=== PATIENT | male | born 1940 | race Caucasian/White ===

== ENCOUNTER 2017-03-31 14:00 | Outpatient (CLI) | payer MEDICARE, BC | END 2017-03-31 14:01 | disposition home or self-care (01) | LOC: BICRAD 14:00 | PROVIDERS: ATTEND Internal Medicine | DX: R05 Cough (principal); R50.9 Fever, unspecified | CPT/HCPCS: 71046 ==

== ENCOUNTER 2017-11-18 08:07 | Outpatient (CLI) | payer MEDICARE, BC ==
--- NOTE | 2017-11-18 09:45 | MRI ---
MRI BRAIN WITHOUT CONTRAST: HISTORY: New-onset headaches after age 48. FINDINGS: No restricted diffusion is seen. No evidence of infarct, hemorrhage, midline shift, or abnormal extr aaxial fluid collections were seen. There are multiple foci of T2 prolongation in the periventricula r white matter consistent with chronic small-vessel ischemic disease. The ventricular size is approp riate and the basilar cisterns are patent. A small focus of hemosiderin deposition is seen in the le ft posterior parietal lobe on the gradient echo sequences indicative of a remote insult. There is mu cosal disease in the paranasal sinuses. There is cortical atrophy. IMPRESSION: 1. Cortical atrophy. 2. Chronic small-vessel ischemic disease. 3. Paranasal sinus disease. 4. No evidence of acute intracranial process. POS: [facility]
== END 2017-11-18 08:08 | disposition home or self-care (01) ==
LOC: TBSIIMAG 08:07
PROVIDERS: ATTEND Psychiatry & Neurology Neurology
DX: R51 Headache (principal); I67.9 Cerebrovascular disease, unspecified; G31.9 Degenerative disease of nervous system, unspecified; J32.9 Chronic sinusitis, unspecified
CPT/HCPCS: 70551

== ENCOUNTER 2018-10-16 08:56 | Outpatient (CLI) | payer MEDICARE, BC ==
--- NOTE | 2018-10-16 12:24 | CT ---
CT CHEST AND ABDOMEN AND PELVIS WITH IV CONTRAST: Date: 10/16/18 INDICATION: History of unintentional weight loss of 10 lbs., with loss of appetite. COMPARISON: None. FINDINGS: There is a 4 mm pulmonary nodule within the right upper lobe on image 22 of series 3. There is an add itional 6 mm pulmonary nodule within the posterolateral aspect of the right lower lobe on image 34 on series 3. There is a 5 mm pulmonary nodule within the left upper lobe on image 26 of series 3. There is a calcified granuloma within the posterolateral aspect of the left lower lobe. There are mild sca ttered areas of subsegmental volume loss. There are mild to moderate calcifications involving the coronary arteries and thoracic aorta. There a re calcified lymph nodes within the right hilar region. There is an 8 mm pulmonary nodule within the right tracheobronchial region. There is a 7 mm pulmonary nodule within the anterior precarinal region . No pathologically enlarged lymph nodes are evident. There is mild fatty infiltration of the liver. The gallbladder is surgically absent. The pancreas and adrenal glands are normal appearing. The spleen is normal appearing. There is a hypodense lesion inv olving the mid right kidney on image 64 of series 2 measuring 1.8 cm that cannot be further character ized. No hydronephrosis is evident. No free fluid or enlarged lymph nodes are evident. The small and large bowel are of normal caliber. There is a normal appendix in the right lower quadra nt. Prostate is mildly enlarged measuring 4.9 cm with mild bladder wall thickening. There is suggesti on of some mild perivesicular fat stranding. There is some mild levoscoliosis of the lumbar spine centered at L2-3 which may be degenerative in na ture. No acute osseous abnormality is evident. IMPRESSION: 1. Nonspecific subcentimeter pulmonary nodules within both the right and left lung, with findings of prior granulomatous disease. These may reflect noncalcified granuloma. As a conservative measure, a follow-up CT examination of the thorax in 3 months is recommended to document stability. 2. Mild fatty liver. 3. Cholecystectomy. 4. Renal hypodensity involving the right mid kidney may reflect a mildly proteinaceous cyst; however , hypodense mass is not excluded. Further evaluation with renal ultrasound is recommended for additio nal characterization. 5. Prostate enlargement. 6. Wall thickening involving the bladder may reflect chronic bladder outlet obstruction; however, th ere is mild perivesicular fat stranding. Component of cystitis is of concern. POS: [facility]
[2018-10-16] MEDS ORDERED: Iopamidol 370 76% 100 ML VIAL ONE (12:44)
== END 2018-10-16 08:57 | disposition home or self-care (01) ==
LOC: CT 08:56
PROVIDERS: ATTEND Radiology Nuclear Radiology
DX: R63.4 Abnormal weight loss (principal); R91.8 Other nonspecific abnormal finding of lung field; K76.0 Fatty (change of) liver, not elsewhere classified; N40.0 Benign prostatic hyperplasia without lower urinary tract symptoms; N28.89 Other specified disorders of kidney and ureter; N32.89 Other specified disorders of bladder; Z90.49 Acquired absence of other specified parts of digestive tract
CPT/HCPCS: 71260; 74177; 82565; Q9967

== ENCOUNTER 2018-10-20 15:04 | Outpatient (CLI) | payer MEDICARE, BC ==
--- NOTE | 2018-10-20 17:01 | RAD ---
7 views of the cervical spine: 10/20/2018 HISTORY: Neck pain with trouble turning head to the left, cervical radiculopathy FINDINGS: Open-mouth odontoid view demonstrates a normal-appearing dens and C1-2 articulation. Frontal imaging demonstrates prominent multilevel bilateral facet and uncovertebral osteophyte format ion throughout the cervical spine, left greater than right. Neutral lateral radiograph of the cervical spine demonstrates anterolisthesis at C3-4 measuring 5 mm. There is prominent disc space narrowing and degenerative endplate change at C5-6 and C6-7. On the extension imaging there is anterolisthesis at C3-4 measuring 4 mm. There is anterolisthesis at C4-5 m easuring 2-3 mm on the neutral and extension imaging. Upon flexion, anterolisthesis at C3-4 measures 6 mm and at C4-5 measures 6 mm. Oblique imaging demonstrates osteophyte encroachment on the neural foramen on the right at C3-4, C4-5 , and C5-6. There is osteophyte encroachment on the neural foramina on the left at multiple levels, not optimally characterized secondary to patient positioning. No prevertebral soft tissue swelling. IMPRESSION: Prominent multilevel cervical spine degenerative change as detailed above. Recommend cerv ical spine MRI for full assessment.
--- NOTE | 2018-10-20 17:07 | MRI ---
MRI cervical spine noncontrast: DATE: 10/20/2018 HISTORY: 78-year-old male with cervical radiculopathy and cervicalgia (neck pain). Decreased range of motion. COMPARISON: 09/14/2008 FINDINGS: Again noted are the multilevel bilateral facet DJD, ranging from mild to moderately severe. The highe r grade facet DJD is at the upper levels bilaterally, especially on the left. C1-2: No high-grade central stenosis. C2-3: Ligamentum flavum thickening mildly indents dorsal surface of spinal cord. Disc space maintaine d. Moderate right facet DJD. Severe left facet DJD. Small to moderate-sized bilateral uncinate process osteophytes. Interval worsening of bilateral neural foraminal stenosis, now bilaterally sever e. Moderate central spinal canal stenosis. C3-4: Moderate size bilateral uncinate process osteophytes. Interval development of grade 1 anterolis thesis of C3 on C4 due to bilateral facet DJD, moderate on right and severe on the left. Mild ligamentum flavum thickening abuts the dorsal surface of spinal cord. In addition to broad-based disc -osteophytic bar complex, superimposed tiny focal central disc protrusion indents the ventral surface of spinal cord. Overall severe central spinal canal stenosis, similar to prior MRI. Severe bi lateral neural foraminal stenosis, similar to or slightly worse than previous. C4-5: Disc space maintained. Bilateral small to moderate-sized uncinate process osteophytes. Mild to moderate right facet DJD. Moderate to severe left facet DJD. Severe bilateral neural foraminal stenosis. Mild to moderate central spinal canal stenosis. C5-6: Interval worsening of now severe disc space narrowing. Degenerative retrolisthesis of C5 on C6 has slightly worsened. Broad-based disc-osteophytic bar complex plus superimposed small focal central disc extrusion with slight inferior migration, all chronic, indent the ventral surface of spi nal cord. Ligamentum flavum thickening abuts the dorsal surface of spinal cord. Overall severe degree of central spinal canal stenosis. Moderate sized bilateral uncinate process osteophytes. Sever e bilateral neural foraminal stenosis. Essentially normal right facet joint. Mild left facet DJD. C6-7: Moderate to severe disc space narrowing. Slight degenerative retrolisthesis of C6 on C7, new si nce prior MRI. Broad-based disc-osteophytic bar complex plus superimposed small focal central disc extrusion with inferior migration which is new since the prior MRI. Mild ligamentum flavum thickening . Mild central spinal canal stenosis. Moderate to large bilateral uncinate process osteophytes. Severe bilateral neural foraminal stenosis. Mild bilateral facet DJD. C7-T1: No central stenosis. Moderate right facet DJD. Mild to moderate left facet DJD. Bilateral mode rate neural foraminal stenosis. Minimal grade 1 anterolisthesis of C7 on T1, due to the facet DJD. IMPRESSION: 1. 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 2. Severe bilateral neural foraminal stenosis at almost all levels. 3. High-grade central spinal canal stenosis at several levels, worst at C3-4 and C5-6 (severe).
== END 2018-10-20 15:05 | disposition home or self-care (01) ==
LOC: TBSIIMAG 15:04
PROVIDERS: ATTEND Radiology Nuclear Radiology
DX: M47.22 Other spondylosis with radiculopathy, cervical region (principal); M50.10 Cervical disc disorder with radiculopathy, unspecified cervical region; M48.02 Spinal stenosis, cervical region
CPT/HCPCS: 72052; 72141

== ENCOUNTER 2019-08-27 13:49 | Outpatient (CLI) | payer MEDICARE, BC ==
[2019-08-27] MEDS ORDERED: Iopamidol-370 76% 500 ML 1 ML ONE (14:39)
--- NOTE | 2019-08-27 15:22 | CT ---
CT BRAIN WITH AND WITHOUT CONTRAST: DATE: 08/27/2019 HISTORY: 79-year-old male with "cervical lymphadenopathy," left head neck mass. TECHNIQUE: Precontrast scan of the brain. IV injection of iodinated contrast media. Postcontrast scan of brain. FINDINGS: There is no evidence of acute intra-axial or extra-axial hemorrhage. There is no midline shift or any other mass effect. There is no extra-axial fluid collection. There is no evidence of obstructive hydrocephalus. There is no abnormal enhancement or mass. Calvarium is intact. There is diffuse, age-a ppropriate brain parenchymal volume loss. At least mild chronic ischemic white matter changes. There is circumferential rim calcification of a small left ocular globe. Alternatively, this could re present a prosthetic globe. There is an enhancing soft tissue extracranial mass along the lateral aspect of the left mastoid tip. See separate report of neck CT. IMPRESSION: 1. No acute or aggressive intracranial findings. 2. 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 3. See separate report of neck CT for left neck mass.
--- NOTE | 2019-08-27 16:04 | CT ---
CT neck with contrast: 08/27/2019 HISTORY: 79-year-old male with growing left retroauricular neck mass. 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 COMPARISON: 06/07/2019 FINDINGS: The previously demonstrated enhancing mass broadly abutting the lateral aspect of the upper portion o f the left sternocleidomastoid muscle, previously measuring approximately 1.4 transverse x 1 AP x 2.9 cm craniocaudal, currently has grown to approximately 1.4 cm transverse x 2.2 cm AP x 3.8 cm cran iocaudal. Its superior extent is in the left retroauricular area, abutting the lateral edge of the tip of the mastoid process. No periostitis or bone invasion. No cervical lymphadenopathy. External auditory canal is clear. Bilateral tympanomastoid cavities, and the maxillary, sphenoid, and ethmoid sinuses, are grossly clear. Multilevel severe facet DJD and lower level severe degenerative disc disease in the cervical spine. Left parotid gland is again noted to be surgically absent. No interval change in appearance of the right parotid gland. Submandibular glands are atrophic, uncha nged. The right thyroid nodule which was previously solid and cystic, is now more solid with more enhancement than before, but has not significantly changed in size, measuring approximately 1.6 x 1.5 x 2.2 cm. Medialization of the right vocal cord. This appears new or more prominent than previously. Left lobe is small, with circumferential peripheral rim calcification. No major pathology identified involving cutting and boning supervisor, parapharyngeal, retropharyngeal, perivertebral, o r posterior cervical, spaces. IMPRESSION: 1.) Over 10 years, there has been slow interval growth of the along the lateral surface of the left s ternocleidomastoid muscle. This is consistent pleomorphic adenoma tumor seeding (it is assumed that the original tumor was at the tail of the left parotid gland). 2) the right thyroid nodule has changed in the internal appearance, but has not changed in size over 10 years (nonaggressive nodule). 3) severe cervical spondylosis. 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 5) new or worsening right vocal cord paralysis. 6) no interval changes in the appearance of the right parotid gland and bilateral submandibular gland s. Recommend clinical correlation for possibility of Sjogren's disease.
== END 2019-08-27 13:50 | disposition home or self-care (01) ==
LOC: BICCT 13:49
PROVIDERS: ATTEND Internal Medicine
DX: R59.0 Localized enlarged lymph nodes (principal); R63.4 Abnormal weight loss; E04.1 Nontoxic single thyroid nodule; M47.812 Spondylosis without myelopathy or radiculopathy, cervical region
CPT/HCPCS: 70470; 70491; Q9967

== ENCOUNTER 2019-11-11 10:25 | Outpatient (CLI) | payer MEDICARE, BC ==
--- NOTE | 2019-11-11 13:16 | CT ---
CT CERVICAL SPINE WITHOUT CONTRAST: Date: 11/11/2019 INDICATION: 79-year-old male with neck pain. COMPARISON: MRI cervical spine without contrast dated 10/06/2019 at [facility]. FINDINGS: The advanced disc degenerative disease seen at C5-6 and C6-7 is stable appearing. Anterior translatio n of C3 on C4, C4 on C5, and retrolisthesis of C5 on C6 is similar appearing. Anterior translation of C7 of T1 is stable appearing. No acute fracture or subluxation is evident. Lung apices are clear. There are scattered vascular calcifications. There is a hypodense lesion involving the posterior aspe ct of the lower pole of the right thyroid gland which is nonspecific. This measures up to 1.5 cm. Thi s is better detailed on the CT of the soft tissues of the neck dated 08/27/2019. At C2-3, there is severe facet osteoarthrosis on the left and moderate facet osteoarthrosis on the ri ght. There is uncovertebral hypertrophy. Constellation of findings induces severe left and moderate r ight osseous neural foraminal narrowing. No appreciable osseous central canal or neural foraminal corinna rowing is evident. At C3-4, there is advanced facet osteoarthrosis with uncovertebral hypertrophy and a broad based disc osteophyte complex inducing severe bilateral osseous neural foraminal narrowing and at least moderat e osseous neural foraminal narrowing. At C4-5, there is uncovertebral hypertrophy and facet osteoarthrosis inducing severe bilateral osseou s neural foraminal narrowing with at least mild osseous central canal narrowing. At C5-6, there is disc osteophyte complex with uncovertebral hypertrophy And facet joint degenerative change inducing severe bilateral osseous neural foraminal narrowing and at least moderate osseous central canal narrowing. At C6-7, the disc osteophyte complex and facet joint degenerative change induces severe right and mod erate to severe left osseous neural foraminal narrowing and mild osseous central canal narrowing. At C7-T1, there is facet joint degenerative change inducing at least moderate to severe right and mil d left osseous neural foraminal narrowing. IMPRESSION: Severe cervical spondylosis with multilevel central canal and neural foraminal narrowing. POS: [facility]
== END 2019-11-11 10:26 | disposition home or self-care (01) ==
LOC: CT 10:25
DX: M48.02 Spinal stenosis, cervical region (principal); M47.812 Spondylosis without myelopathy or radiculopathy, cervical region; M48.03 Spinal stenosis, cervicothoracic region
CPT/HCPCS: 72125

== ENCOUNTER 2020-08-09 18:30 | Outpatient (CLI) | payer MEDICARE, BC | END 2020-08-09 18:31 | disposition home or self-care (01) | LOC: SLEEPLAB 18:30 | PROVIDERS: ATTEND Internal Medicine | DX: G47.33 Obstructive sleep apnea (adult) (pediatric) (principal); R53.83 Other fatigue; K21.9 Gastro-esophageal reflux disease without esophagitis; R06.83 Snoring; I10 Essential (primary) hypertension; G47.00 Insomnia, unspecified | CPT/HCPCS: 95806 ==

== ENCOUNTER 2021-09-07 11:08 | Outpatient (CLI) | payer MEDICARE, BC | END 2021-09-07 11:09 | disposition home or self-care (01) | LOC: LABBT 11:08 | PROVIDERS: ATTEND Neurological Surgery | DX: M48.061 Spinal stenosis, lumbar region without neurogenic claudication (principal); Z20.822 Contact with and (suspected) exposure to COVID-19 | CPT/HCPCS: 87811 ==

== ENCOUNTER 2021-09-12 05:45 | Day surgery (SDC) | payer MEDICARE, BC ==
[2021-09-10 10:39] VITALS: BMI 24.3
[2021-09-12] MEDS ORDERED: Bupivacaine PF 0.5% 30 ML VIAL ONE (06:10)
[2021-09-12] MEDS ORDERED: EPINEPHrine 1 MG/ML AMP ONE (06:10)
[2021-09-12] MEDS ORDERED: Thrombin 5000 UNITS/5 ML VIAL ONE (06:10)
[2021-09-12] MEDS ORDERED: fentaNYL Citrate/PF 100 MCG/2 ML SYRINGE ONE (06:24)
[2021-09-12] MEDS ORDERED: Famotidine/PF 20 mg/2ml Vial ONE (06:24)
[2021-09-12] MEDS ORDERED: CEFAZOLIN 2 GM VIAL ONE ×2 (06:41→11:01)
[2021-09-12] MEDS ORDERED: Sodium Chloride 0.9% 100 ML ONE ×2 (06:41→11:01)
[2021-09-12] MEDS ORDERED: Calcium Chloride 1 GM/10 ML Abboject SYRINGE ONE (07:19)
[2021-09-12] MEDS ORDERED: Rocuronium Bromide 10 MG/ML (10ML VIAL) ONE (07:19)
[2021-09-12] MEDS ORDERED: ePHEDrine 50 MG/ML VIAL ONE (07:19)
[2021-09-12] MEDS ORDERED: PROPOFOL 200 MG/20 ML VIAL ONE (07:19)
[2021-09-12] MEDS ORDERED: Ondansetron PF 4 MG/2 ML Vial ONE (07:19)
[2021-09-12] MEDS ORDERED: Phenylephrine 10 MG/ML VIAL ONE (07:19)
[2021-09-12] MEDS ORDERED: Dexamethasone 20 MG/5 ML VIAL ONE (07:19)
[2021-09-12] MEDS ORDERED: SUGAMMADEX SODIUM 200 MG/2 ML VIAL ONE (08:33)
[2021-09-12] MEDS ORDERED: Fentanyl 100 MCG/2 ML VIAL ONE (09:12)
[2021-09-12] MEDS ORDERED: Acetaminophen/Codeine 30-300mg Tablet ONE (10:57)
== END 2021-09-12 13:20 | disposition home or self-care (01) ==
LOC: SDC 05:45
PROVIDERS: ATTEND Neurological Surgery
PROC: 01NB0ZZ Release Lumbar Nerve, Open Approach (ICD-10-PCS; principal; 2021-09-12)
DX: M48.062 Spinal stenosis, lumbar region with neurogenic claudication (principal); G89.29 Other chronic pain; I10 Essential (primary) hypertension; Z79.899 Other long term (current) drug therapy
CPT/HCPCS: 76000; J0171; J0690; J1100; J2370; J2405; J2704; J3010; J3490; S0020; S0028

== ENCOUNTER 2023-11-27 09:25 | Outpatient (CLI) | payer MEDICARE | END 2023-11-27 09:26 | disposition home or self-care (01) | LOC: BICMAMMO 09:25 | PROVIDERS: ATTEND Internal Medicine Rheumatology | DX: M81.0 Age-related osteoporosis without current pathological fracture (principal); M85.89 Other specified disorders of bone density and structure, multiple sites | CPT/HCPCS: 77080 ==

== ENCOUNTER 2023-12-29 14:02 | Outpatient (CLI) | payer MEDICARE | END 2023-12-29 14:03 | disposition home or self-care (01) | LOC: RAD 14:02 | PROVIDERS: ATTEND Internal Medicine Critical Care Medicine | DX: R06.00 Dyspnea, unspecified (principal) | CPT/HCPCS: 71046 ==

== ENCOUNTER 2024-01-27 13:00 | Outpatient (CLI) | payer MEDICARE | END 2024-01-27 13:01 | disposition home or self-care (01) | LOC: RAD 13:00 | PROVIDERS: ATTEND Internal Medicine Critical Care Medicine | DX: S82.899A Other fracture of unspecified lower leg, initial encounter for closed fracture (principal) ==